=== PATIENT | male | born 1955 | race Two or more races ===

== ENCOUNTER → 2024-01-07 | Outpatient (BNVA) | payer MEDICARE, SELFPAY | END | disposition home or self-care (01) | PROVIDERS: PCP Family Medicine; Referring Provider Family Medicine; Visit Provider Urology | DX: N40.1 Benign prostatic hyperplasia with lower urinary tract symptoms (principal); N39.498 Other specified urinary incontinence; R33.8 Other retention of urine; I86.1 Scrotal varices; I10 Essential (primary) hypertension; E66.9 Obesity, unspecified; Z68.36 Body mass index [BMI] 36.0-36.9, adult | CPT/HCPCS: 99212; G0463 ==

== ENCOUNTER → 2024-12-21 | Outpatient (CLI) | payer MEDICARE, SELFPAY ==
--- NOTE | 2024-12-21 14:00 | XR_ITS ---
EXAMINATION: Testicular sonography complete TECHNIQUE: Grayscale sonographic images testes, assessment arterial inflow and venous outflow Doppler spectral analysis color flow analysis Date and time: December 21, 2024 1421 hours INDICATIONS: Solid mass in the epididymis right testis on ultrasound September 06, 2023 FINDINGS: Right testis 4.1 cm epididymis 11 mm Arterial flow to testicle Stable solid mass epididymal tail 8 x 8 x 7 mm Prominent varicocele No testicular mass Left testis 2.9 cm epididymis 14 mm Arterial flow to testicle. No testicular mass Prominent varicocele IMPRESSION: Stable small solid right epididymal mass 8 x 8 x 7 mm Prominent bilateral varicoceles
[2024-12-21 16:16] LABS: Prostate Specific Antigen 0.44 ng/mL (0-4.00)
== END | disposition home or self-care (01) ==
LOC: CDIM 13:39 → COPL 14:43
PROVIDERS: PCP Urology; Referring Provider Urology; Visit Provider Radiology Diagnostic Radiology
DX: N50.9 Disorder of male genital organs, unspecified (principal); I86.1 Scrotal varices; N40.1 Benign prostatic hyperplasia with lower urinary tract symptoms
CPT/HCPCS: 36415; 76870; 84153

== ENCOUNTER → 2025-01-12 | Outpatient (BNVA) | payer MEDICARE, SELFPAY | END | disposition home or self-care (01) | PROVIDERS: PCP Family Medicine; Referring Provider Family Medicine; Visit Provider Physician Assistant | DX: N40.1 Benign prostatic hyperplasia with lower urinary tract symptoms (principal); R33.8 Other retention of urine; I86.1 Scrotal varices; I10 Essential (primary) hypertension | CPT/HCPCS: Q3014 ==